=== PATIENT | male | born 1990 | race Caucasian/White ===

== ENCOUNTER 2025-03-29 18:41 | Emergency (ER) | payer OTHER ==
[2025-03-29] MEDS: AMOXIC-POT CLAV 875-125MG 1 EACH TAB PO STA (19:25)
[2025-03-29] MEDS: DIPH,PERTUS(ACELL)TETVAC-LF 0.5 ML VIAL IM ONE (19:26)
--- NOTE | 2025-03-29 19:27 | ED ---
Animal Bite HPI - General Chief Complaint: Animal Bite Stated Complaint: right leg and left arm dog bite Time Seen by Provider: 03/29/25 18:55 Source: patient, RN notes reviewed Mode of arrival: ambulatory Limitations: no limitations - History of Present Illness Initial Comments: This is a 34-year-old male who presents to the emergency department for a dog bite. 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 However, the dog came outside and bit him in the left arm and right thigh. The dog is a [place] and the family of the dog provided documentation that the dog was up-to-date on its rabies vaccine. Patient is unsure when his last tetanus vaccine was. Pain and bleeding are controlled. MD Complaint: animal bite - Related Data Previous Rx's Medication Instructions Recorded Amoxic-Pot Clav 875-125Mg 1 tab PO Q12HR 10 Days #20 tab 03/29/25 [Augmentin 875-125] Ibuprofen [Motrin] 800 mg PO Q8H PRN #30 tab 03/29/25 Allergies Allergy/AdvReac Type Severity Reaction Status Date / Time No Known Allergies Allergy Verified 03/29/25 18:47 Review of Systems ROS Statement: Those systems with pertinent positive or pertinent negative responses have been documented in the HPI. ROS Other: All systems not noted in ROS Statement are negative. Past Medical History Past Medical History: No Reported History History of Any Multi-Drug Resistant Organisms: None Reported Past Surgical History: No Surgical Hx Reported Past Psychological History: No Psychological Hx Reported Smoking Status: Never smoker Past Alcohol Use History: None Reported Past Drug Use History: None Reported General Exam Limitations: no limitations General appearance: alert, in no apparent distress Head exam: Present: atraumatic, normocephalic, normal inspection Respiratory exam: Present: normal lung sounds bilaterally. Absent: respiratory distress, wheezes, rales, rhonchi, stridor Cardiovascular Exam: Present: regular rate, normal rhythm Neurological exam: Present: alert, oriented X3, CN II-XII intact Psychiatric exam: Present: normal affect, normal mood Skin exam: Present: other (Superficial puncture wounds to the left biceps area and deeper puncture wounds to the right thigh, 2 of which have visible subcutaneous tissue.) Course Vital Signs 03/29/25 18:42 Temperature 97.9 F Pulse Rate 92 Respiratory 18 Rate Blood Pressure 133/84 O2 Sat by Pulse 97 Oximetry Procedures - Laceration Laceration #1 Consent Obtained: verbal consent Indication: laceration Site: lower extremity Size (cm): 1 Description: linear Depth: simple, single layer Anesthetic Used: lidocaine 1% Anesthesia Technique: local infiltration Amount (mls): 4 Pre-repair: wound explored, irrigated extensively Type of Sutures: nylon Size of Sutures: 4-0 Number of Sutures: 1 Technique: other ([id number]) Laceration #2 Consent Obtained: verbal consent Indication: laceration Site: lower extremity Size (cm): 1 Description: linear Depth: simple, single layer Anesthetic Used: lidocaine 1% Anesthesia Technique: local infiltration Amount (mls): 4 Pre-repair: wound explored, irrigated extensively Type of Sutures: nylon Size of Sutures: 4-0 Number of Sutures: 1 Technique: other ([id number]) Medical Decision Making - Medical Decision Making This is a 34 year old male who presents to the emergency department for a dog bite. Was pt. sent in by a medical professional or institution? @ -No Did you speak to anyone other than the patient for history? @ -No Did you review nursing and triage notes? @ -Yes, and I agree, it is accurate with regards to the patient's symptoms. Were old charts reviewed? @ -No Differential Diagnosis? @ -Bite, burn, cellulitis, abrasion, abscess, this is not meant to be an all- inclusive list. EKG interpreted by me (3pts min.)? @ -Not obtained X-rays interpreted by me (1pt min.)? @ -X-ray of the left humerus and right femur obtained. My interpretation identifies no acute fractures on any of the images. CT interpreted by me (1pt min.)? @ -Not obtained U/S interpreted by me (1pt. min.)? @ -Not obtained What testing was considered but not performed? (CT, X-rays, U/S, labs)? Why? @ -None What meds were considered but not given? Why? @ -None Did you discuss the management of the patient with other professionals? @ -No Did you reconcile home meds? @ -No Was smoking cessation discussed for >3mins.? @ -No Was critical care preformed (if so, how long)? @ -No Were there social determinants of health that impacted care today? How? (Homelessness, low income, unemployed, alcoholism, drug addiction, transportation, low edu. Level, literacy, decrease access to med. care, long term, rehab)? @ -No Was there de-escalation of care discussed even if they declined? (Discuss DNR or withdrawal of care, Hospice)? @ -No What co-morbidities impacted this encounter? (DM, HTN, Smoking, COPD, CAD, Cancer, CVA, Hep., AIDS, mental health diagnosis, sleep apnea, morbid obesity)? @ -None Was patient admitted / discharged? @ -Discharged. The dog bite on the left biceps was rather superficial and no repair was required. He had several bite wounds on the right thigh, 2 of which had a large amount of tissue protruding and a [id number] suture was used to loosely approximate each of those puncture wounds. The wounds were thoroughly irrigated prior to closure. Tetanus vaccine was updated. The dog bite form was filled out and a member of the police department came to take a statement from the patient. Augmentin prescribed for infectious prophylaxis along with ibuprofen for pain control. Also advised icing the areas to help with swelling and discomfort. Patient discharged home in stable condition and advised to return in 7 to 10 days for suture removal. Case discussed with ED attending Dr. Knight. Return precautions reviewed in depth, the patient is instructed to return to the emergency department with any new, worsening, or concerning symptoms. Patient verbalized understanding. Undiagnosed new problem with uncertain prognosis? @ -None Drug Therapy requiring intensive monitoring for toxicity (Heparin, Nitro, Insulin, Cardizem)? @ -None Were any procedures done? @ -Laceration repair with sutures Diagnosis/symptom? @ -Dog bite Acute, or Chronic, or Acute on Chronic? @ -Acute Uncomplicated (without systemic symptoms) or Complicated (systemic symptoms)? @ -Uncomplicated Side effects of treatment? @ -None Exacerbation, Progression, or Severe Exacerbation] @ -Not applicable Poses a threat to life or bodily function? @ -No - Radiology Data Radiology results: report reviewed, image reviewed Disposition Clinical Impression: Dog bite Disposition: HOME SELF-CARE Instructions (If sedation given, give patient instructions): Animal Bite (ED), Care For Your Stitches (ED) Additional Instructions: Return to the emergency department with any new, worsening, or concerning symptoms and in 7-10 days for removal of your stitches. Take the antibiotic as prescribed for 10 days. Alternate with ibuprofen and Tylenol as needed for discomfort. You can also ice the areas. Prescriptions: Amoxic-Pot Clav 875-125Mg [Augmentin 875-125] 1 tab PO Q12HR 10 Days #20 tab Ibuprofen [Motrin] 800 mg PO Q8H PRN #30 tab PRN Reason: Pain Is patient prescribed a controlled substance at d/c from ED?: No Referrals: None,Stated [Primary Care Provider] - 1-2 days Time of Disposition: 20:02
[2025-03-29] MEDS: LIDOCAINE 1% INJ 10MG/ML (20 ML MDV) SQ ONE (19:44)
--- NOTE | 2025-03-29 19:52 | XR ---
EXAMINATION TYPE: XR humerus LT DATE OF EXAM: 03/29/2025 7:36 PM INDICATION: Patient age:Male; 34 years old; Reason for study: Dog bite; PH[facility]. pain COMPARISON: None TECHNIQUE: The left humerus was examined in AP and lateral projections. FINDINGS: No evidence of acute osseous pathology, joint dislocation, or soft tissue swelling. The rem aining portions of the visualized chest are unremarkable. No radiopaque foreign body. IMPRESSION: No acute osseous pathology. [facility], , 03/29/2025 7:50 PM
--- NOTE | 2025-03-29 19:54 | XR ---
EXAMINATION TYPE: XR femur RT DATE OF EXAM: 03/29/2025 7:36 PM INDICATION: Patient age:Male; 34 years old; Reason for study: Dog bite; pain COMPARISON: None TECHNIQUE: The right femur was examined in AP and lateral projections. FINDINGS: No evidence of acute osseous pathology, joint dislocation, or soft tissue swelling. There is a button identified overlying the right hip soft tissues. No concerning radiopaque foreign body. IMPRESSION: No acute osseous pathology. [facility], , 03/29/2025 7:52 PM
[2025-03-29 20:16] VITALS: BP 143/83; PULSE 75; RESP 16; TEMP 98.6
== END 2025-03-29 20:16 | disposition home or self-care (01) ==
LOC: EC 18:41
DX: S71.111A Laceration without foreign body, right thigh, initial encounter (principal); S41.152A Open bite of left upper arm, initial encounter; Z23 Encounter for immunization; W54.0XXA Bitten by dog, initial encounter
CPT/HCPCS: 73552; 73060; 90715; 99283; 90471; J2003